=== PATIENT | female | born 1995 | race Caucasian/White ===

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

== ENCOUNTER 2017-06-03 16:49 | Emergency (ER) | payer MEDICAID ==
[~2017-06-03] VITALS: Ht 157.5 cm; Wt 56.8 kg
[2017-06-03 16:55] VITALS: BP 128/79; PULSE 76; TEMP 98.8
[2017-06-03] MEDS ORDERED: ADDERALL XR20 MG PO (16:57)
[2017-06-03 17:33] LABS: PH 8 (5-8); SQUAMOUS EPITHELIAL 0-2 /hpf; URINE APPEARANCE Clear; URINE BACTERIA None Seen /hpf; URINE BILIRUBIN Negative (NEGATIVE); URINE BLOOD Negative (NEGATIVE); URINE COLOR Yellow; URINE GLUCOSE Negative (NEGATIVE); URINE KETONE Negative (NEGATIVE); URINE RBC 0-2 /hpf; URINE UROBILINOGEN Negative (NEGATIVE)
[2017-06-03] MEDS ORDERED: MACROBID 1100 MG/CAP PO (18:12)
[2017-06-03 20:35] LABS: CHLAMYDIA/TRACH by PCR Female NOT DETECTED; NEISSERIA GON by PCR Female NOT DETECTED
== END 2017-06-03 18:25 | disposition home or self-care (01) ==
LOC: COL.ER 16:49
PROVIDERS: Nurse Practitioner
DX: N39.0 Urinary tract infection, site not specified (principal); F90.9 Attention-deficit hyperactivity disorder, unspecified type; Z87.42 Personal history of other diseases of the female genital tract

== ENCOUNTER 2018-08-20 20:55 | Emergency (ER) | payer OTHER ==
[~2018-08-20] VITALS: Ht 157.5 cm; Wt 55.5 kg
[~2018-08-20 20:55] MED LIST: ADDERALL XR20 MG PO; MACROBID 1100 MG/CAP PO
[2018-08-20 20:58] VITALS: BP 128/82; TEMP 98.5
[2018-08-20] MEDS ORDERED: DEPO-PROVER150 MG/M1 IM (21:11)
[2018-08-20] MEDS ORDERED: AMOXICILLIN 8751 TAB PO (21:48)
[2018-08-20 22:58] VITALS: PULSE 84
== END 2018-08-20 22:58 | disposition home or self-care (01) ==
LOC: COL.ER 20:55
DX: S01.81XA Laceration without foreign body of other part of head, initial encounter (principal); W54.0XXA Bitten by dog, initial encounter; Y92.009 Unspecified place in unspecified non-institutional (private) residence as the place of occurrence of the external cause

== ENCOUNTER 2018-08-31 15:20 | Emergency (ER) | payer OTHER ==
[~2018-08-31 15:20] MED LIST changes: +AMOXICILLIN 8751 TAB PO; +DEPO-PROVER150 MG/M1 IM
[2018-08-31 15:26] VITALS: BP 123/68; PULSE 104
== END 2018-08-31 15:31 | disposition home or self-care (01) ==
LOC: COL.ER 15:20
DX: S01.112D Laceration without foreign body of left eyelid and periocular area, subsequent encounter (principal)